=== PATIENT | female | born 1960 | race Caucasian/White ===

== ENCOUNTER → 2020-11-23 12:24 | Outpatient (CLI) | payer BC, SELFPAY ==
[2020-11-23] MEDS: COVID-19 VACC #1, MRNA(MOD) 100 MCG/0.5 ML VIAL IM (12:32)
== END ==
PROVIDERS: Visit Provider Internal Medicine
DX: Z23 Encounter for immunization (principal)
CPT/HCPCS: 0011A; 91301

== ENCOUNTER → 2020-12-21 11:14 | Outpatient (CLI) | payer BC, SELFPAY ==
[2020-12-21] MEDS: COVID-19 VACC #2, MRNA(MOD) 100 MCG/0.5 ML VIAL IM (11:20)
== END ==
PROVIDERS: Visit Provider Internal Medicine
DX: Z23 Encounter for immunization (principal)
CPT/HCPCS: 0012A; 91301

== ENCOUNTER → 2023-09-22 08:07 | Outpatient (CLI) | payer BC, OTHER, SELFPAY ==
--- NOTE | 2023-09-22 08:14 | DI.CT.S_ITS ---
PROCEDURE: CT ABDOMEN PELVIS W CON INDICATIONS: Malignant neoplasm of endometrium TECHNIQUE: After the administration of intravenous contrast, axial sections acquired from the lung bases to the pubic symphysis. Coronal and sagittal reformats were performed. For radiation dose reduction, the following was used: automated exposure control, adjustment of mA and/or kV according to patient size. COMPARISON: None. FINDINGS: Image quality: Diagnostic. Lower Chest: No significant findings. Small hiatal hernia. ABDOMEN: Liver: No solid mass. Normal size. Mild hepatic steatosis. Gallbladder: No radiopaque gallstones or wall thickening. Biliary ducts: No biliary dilation. Pancreas: No ductal dilation. Spleen: Size is within normal limits. Adrenal Glands: No adrenal nodules. Kidneys and Ureters: No hydronephrosis. No solid mass. No complex renal cystic lesion which requires follow up. Stomach and Bowel: Normal colonic caliber, without significant wall thickening. Duodenum appears mildly thickened. Peritoneum: No abnormal intraperitoneal fluid. No free air. Ventral Wall: No hernia. Abdominal Nodes: No retroperitoneal or mesenteric adenopathy by size criteria. Vessels: Aorta and inferior vena cava are normal in size. PELVIS: Pelvic Organs: Uterus is absent consistent with hysterectomy. Ovaries are not identified. No pathological free-fluid in pelvis. Bladder: Unremarkable. Pelvic Nodes: No enlarged lymph nodes. Miscellaneous: No inguinal hernias are seen. Bones: No aggressive osseous abnormality. Severe degenerative disc disease at L5-S1. IMPRESSION: 1. Hysterectomy. 2. No findings to suggest metastatic disease. 3. Duodenum appears mildly thickened, which is nonspecific. Differential diagnoses are mild duodenitis versus artifact from peristalsis. Consider upper GI series or EGD if clinically indicated. Dictated by: Dez Rivera M.D. on 09/22/2023 at 12:57 Approved by: Dez Rivera M.D. on 09/23/2023 at 8:59
[2023-09-22 08:44] LABS: Estimated Glomerular Filt Rate > 60 mL/min (>60)
== END ==
PROVIDERS: Radiology Diagnostic Radiology; Referring Provider Obstetrics & Gynecology; Visit Provider Obstetrics & Gynecology
DX: C54.1 Malignant neoplasm of endometrium (principal); K44.9 Diaphragmatic hernia without obstruction or gangrene; K76.0 Fatty (change of) liver, not elsewhere classified; M51.37 Other intervertebral disc degeneration, lumbosacral region; Z90.710 Acquired absence of both cervix and uterus
CPT/HCPCS: 36415; 74177; 82565; Q9967

== ENCOUNTER → 2024-11-11 08:31 | Outpatient (CLI) | payer MEDICARE, OTHER, SELFPAY ==
--- NOTE | 2024-11-11 08:48 | DI.CT.S_ITS ---
PROCEDURE: CT ABDOMEN PELVIS W CON INDICATIONS: ENDOMETRIAL CANCER,PELVIC PAIN AND CRAMPING TECHNIQUE: After the administration of intravenous contrast, axial sections acquired from the lung bases to the pubic symphysis. Coronal and sagittal reformats were performed. For radiation dose reduction, the following was used: automated exposure control, adjustment of mA and/or kV according to patient size. COMPARISON: [facility], CT, CT ABDOMEN PELVIS W CON, 09/22/2023, 9:56. FINDINGS: Image quality: Diagnostic. Lower Chest: No significant findings. ABDOMEN: Liver: No solid mass. Gallbladder: No radiopaque gallstones or wall thickening. Biliary ducts: No biliary dilation. Pancreas: No ductal dilation. Spleen: Size is within normal limits. Adrenal Glands: No adrenal nodules. Kidneys and Ureters: No hydronephrosis. No solid mass. No complex renal cystic lesion which requires follow up. Stomach and Bowel: Normal colonic caliber, without significant wall thickening. Peritoneum: No abnormal intraperitoneal fluid. No free air. Ventral Wall: No significant ventral hernia. Abdominal Nodes: No retroperitoneal or mesenteric adenopathy by size criteria. Vessels: Aorta and inferior vena cava are normal in size. PELVIS: Pelvic Organs: Presumed hysterectomy and likely bilateral oophorectomy. Bladder: No bladder wall thickening, accounting for underdistention. Pelvic Nodes: No enlarged lymph nodes. Miscellaneous: No inguinal hernias are seen. Bones: No aggressive osseous abnormality. IMPRESSION: No evidence of recurrent primary neoplasm or development of metastatic disease related to prior endometrial carcinoma. Prior hysterectomy and presumed prior bilateral oophorectomy. Dictated by: Maximo Rainey M.D. on 11/11/2024 at 13:01 Approved by: Maximo Rainey M.D. on 11/11/2024 at 13:02
[2024-11-11 09:17] LABS: Estimated Glomerular Filt Rate > 60 mL/min (>60)
== END ==
PROVIDERS: PCP Physician Assistant; Referring Provider Registered Nurse Obstetric, High-Risk; Visit Provider Registered Nurse Obstetric, High-Risk
DX: C54.1 Malignant neoplasm of endometrium (principal); R10.2 Pelvic and perineal pain; Z90.710 Acquired absence of both cervix and uterus
CPT/HCPCS: 36415; 74177; 82565; Q9967